=== PATIENT | male | born 1990 | race Caucasian/White ===

== ENCOUNTER 2016-10-08 15:14 | Emergency (ER) | payer SELFPAY ==
[~2016-10-08] VITALS: Ht 170.2 cm; Wt 87.5 kg
[2016-10-08 15:22] VITALS: BP 153/72
--- NOTE | 2016-10-08 19:06 | NUR ---
Patient ambulated to bed 6. RN evaluating patient at bedside.
--- NOTE | 2016-10-08 19:16 | NUR ---
Dr. Pérez evaluating patient at bedside.
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
[2016-10-08] MEDS ORDERED: diphenhydrAMINE 50 MG CAP PO ONE (19:30)
[2016-10-08] MEDS ORDERED: predniSONE 20 MG TAB PO ONE (19:30)
[2016-10-08 19:40] VITALS: BP 153/72
--- NOTE | 2016-10-08 19:40 | NUR ---
Patient discharged with v/s stable. Written and verbal after care instructions given and explained. Patient verbalized understanding. Ambulatory with steady gait. All questions addressed prior to discharge. Advised to follow up with PMD.
== END 2016-10-08 19:40 | disposition home or self-care (01) ==
LOC: MED 15:14
DX: H21.02 Hyphema, left eye (principal); R22.0 Localized swelling, mass and lump, head